=== PATIENT | male | born 1955 | race Caucasian/White ===

== ENCOUNTER 2018-02-04 03:47 | Emergency (ER) | payer SELFPAY ==
[2018-02-04] MEDS ORDERED: ASPIRIN 81 MG TABLET, CHEWABLE PO ONE (03:54)
[2018-02-04 04:22] LABS: ABSOLUTE EOSINOPHILS # (AUTO) 0.3 10^3/uL (0.0-0.6); ABSOLUTE LYMPHOCYTES (AUTO) 1.8 10^3/uL (0.5-4.7); ABSOLUTE MONOCYTES (AUTO) 0.5 10^3/uL (0.1-1.4); ABSOLUTE NEUT (AUTO) 2.6 10^3/uL (1.7-8.2); BASOPHILS % (AUTO) 0.2 % (0-2); EOSINOPHILS % (AUTO) 6.3 % (0-6); HEMOGLOBIN 12.6 g/dL (12.0-15.5); MEAN CORPUSCULAR HEMOGLOBIN 33.4 pg (27.0-33.4); MEAN CORPUSCULAR HGB CONC 34.1 g/dL (32.0-36.0); MEAN CORPUSCULAR VOLUME 98 fl (80-97); MONOCYTES % (AUTO) 9.4 % (3-13); PLATELET COUNT 314 10^3/uL (150-450); RED BLOOD COUNT 3.78 10^6/uL (3.72-5.28); RED CELL DISTRIBUTION WIDTH 13.8 % (11.5-14.0); SEGMENTED NEUTROPHILS % (AUTO) 50.1 % (42-78); TOTAL CELLS COUNTED % (AUTO) 100 %; WHITE BLOOD COUNT 5.3 10^3/uL (4.0-10.5)
[2018-02-04] MEDS ORDERED: MORPHINE SULFATE 10 MG/ML INJ IV ONE (04:26)
[2018-02-04] MEDS ORDERED: ONDANSETRON HCL INJ/PF 4 MG/2 ML SDV IV ONE (04:26)
--- NOTE | 2018-02-04 04:26 | RADIOLOGY REPORT (SQ) ---
EXAM DESCRIPTION: XR CHEST 1 VIEW COMPLETED DATE/TME: 02/04/2018 03:54 CLINICAL HISTORY: 62 years, Female, cp COMPARISON: None. NUMBER OF VIEWS: 1 TECHNIQUE: Frontal view the chest LIMITATIONS: None. FINDINGS: The heart size is normal. Osteopenia. COPD. Multiple left rib fractures. No pneumothorax. Punctate hyperdensity in the right axilla. Lungs are clear IMPRESSION: COPD. No acute cardiopulmonary process 2010 [email or web address]- All Rights Reserved
--- NOTE | 2018-02-04 04:28 | ER Document Report ---
ED General <KIRAN SHAY - Last Filed: 02/04/18 10:13> - General Mode of Arrival: Medic Information source: Patient, Emergency Med Personnel, [facility] Records - HPI Onset: Just prior to arrival Onset/Duration: Sudden, Intermittent Quality of pain: Sharp Associated symptoms: Chest pain. denies: Diarrhea, Fever, Headache, Nausea, Vomiting, Shortness of breath Exacerbated by: Denies Relieved by: Denies Similar symptoms previously: No Recently seen / treated by doctor: No <TOBI DELGADO - Last Filed: 02/04/18 18:20> - General Stated Complaint: CHEST PAIN Time Seen by Provider: 02/04/18 03:56 Notes: 62-year-old male with remote history of CVA presents via EMS with complaint of chest pain that started 1 hour prior to arrival while riding his bike. Patient states that he rode his bike approximately 35 miles today. He states that 1 hour ago he started to experience sharp epigastric pain that does not radiate. He describes it as intermittent and not associated with diaphoresis, nausea or lightheadedness. He denies any previous history of NH. He does have a 30-pack- year smoking history patient admits to drinking a few beers daily. Patient denies any recent illness. (TOBI DELGADO) - Related Data Allergies/Adverse Reactions: No Known Allergies Allergy (Unverified 02/04/18 04:04) Past Medical History - General Information source: Patient, Emergency Med Personnel - Social History Smoking Status: Current Every Day Smoker Cigarette use (# per day): Yes - 10 Smoking Education Provided: Yes - Smoking cessation counseling was provided for 4 minutes at the bedside Frequency of alcohol use: Heavy Drug Abuse: None Lives with: Homeless Family History: Reviewed & Not Pertinent Patient has suicidal ideation: No Patient has homicidal ideation: No Neurological Medical History: Reports: Hx Cerebrovascular Accident <TOBI DELGADO - Last Filed: 02/04/18 18:20> Review of Systems <KIRAN SHAY - Last Filed: 02/04/18 10:13> <TOBI DELGADO - Last Filed: 02/04/18 18:20> - Review of Systems Notes: REVIEW OF SYSTEMS: CONSTITUTIONAL : Denies fever, chills, or sweats. Denies recent illness. Denies weight loss, recent hospitalizations. EENT: Denies visual changes, eye pain. Denies sore throat, oral lesions, difficulty swallowing. CARDIOVASCULAR: Denies palpitations. Denies lower extremity edema. RESPIRATORY: Denies cough. Denies shortness of breath, wheezing. GASTROINTESTINAL: Denies abdominal pain or distention. Denies nausea, vomiting , or diarrhea. Denies blood in vomitus, stools, or per rectum. Denies black, tarry stools. Denies constipation. GENITOURINARY: Denies difficulty urinating, painful urination, frequency, blood in urine, testicular pain or penile discharge. MUSCULOSKELETAL: Denies back or neck pain or stiffness. Denies joint pain or swelling. SKIN: Denies rash, lesions or sores. HEMATOLOGIC : Denies easy bruising or bleeding. LYMPHATIC: Denies swollen glands. NEUROLOGICAL: Denies confusion or altered mental status. Denies loss of consciousness. Denies dizziness or lightheadedness. Denies headache. Denies weakness or paralysis. Denies problems difficulty with ambulation, slurred speech. Denies sensory loss, numbness, or tingling. Denies seizures. PSYCHIATRIC: Denies anxiety or stress. Denies depression, suicidal ideation, or (TOBI DELGADO) Physical Exam - Vital signs Interpretation: No: Hypotensive, Tachycardic, Febrile <TOBI DELGADO - Last Filed: 02/04/18 18:20> - Vital signs Vitals: Pulse Ox 98 02/04/18 03:52 Course - Laboratory Result Diagrams: 02/04/18 03:58 02/04/18 03:58 <KIRAN SHAY - Last Filed: 02/04/18 10:13> - Laboratory Result Diagrams: 02/04/18 03:58 02/04/18 03:58 - Diagnostic Test Radiology reviewed: Image reviewed, Reports reviewed - EKG Interpretation by Ct EKG shows normal: Sinus rhythm Rate: Normal Rhythm: NSR When compared to previous EKG there are: Previous EKG unavailable <TOBI DELGADO - Last Filed: 02/04/18 18:20> - Re-evaluation Re-evalutation: Chest X-Ray 02/04/18 03:54 IMPRESSION: COPD. No acute cardiopulmonary process 2010 [employer]- All Rights Reserved Laboratory 02/04/18 02/04/18 02/04/18 03:58 03:58 03:58 WBC 5.3 RBC 3.78 Hgb 12.6 Hct 37.0 MCV 98 H MCH 33.4 MCHC 34.1 RDW 13.8 Plt Count 314 Seg Neutrophils % 50.1 Lymphocytes % 34.0 Monocytes % 9.4 Eosinophils % 6.3 H Basophils % 0.2 Absolute Neutrophils 2.6 Absolute Lymphocytes 1.8 Absolute Monocytes 0.5 Absolute Eosinophils 0.3 Absolute Basophils 0.0 Sodium 146.8 H Potassium 4.3 Chloride 109 H Carbon Dioxide 29 Anion Gap 9 BUN 6 L Creatinine 0.62 Est GFR ( Amer) > 60 Est GFR (Non-Af Amer) > 60 Glucose 93 Calcium 9.2 Total Bilirubin 0.3 Direct Bilirubin 0.2 Neonat Total Bilirubin Not Reportable Neonat Direct Bilirubin Not Reportable Neonat Indirect Bili Not Reportable AST 41 H ALT 23 Alkaline Phosphatase 103 Creatine Kinase 126 CK-MB (CK-2) 2.19 Troponin I < 0.012 Total Protein 7.2 Albumin 3.7 Lipase 02/04/18 03:58 WBC RBC Hgb Hct MCV MCH MCHC RDW Plt Count Seg Neutrophils % Lymphocytes % Monocytes % Eosinophils % Basophils % Absolute Neutrophils Absolute Lymphocytes Absolute Monocytes Absolute Eosinophils Absolute Basophils Sodium Potassium Chloride Carbon Dioxide Anion Gap BUN Creatinine Est GFR ( Amer) Est GFR (Non-Af Amer) Glucose Calcium Total Bilirubin Direct Bilirubin Neonat Total Bilirubin Neonat Direct Bilirubin Neonat Indirect Bili AST ALT Alkaline Phosphatase Creatine Kinase CK-MB (CK-2) Troponin I Total Protein Albumin Lipase 54.1 02/04/18 04:25 62-year-old male with a 52-[id number]-[id number] smoking history presents via EMS with complaint of chest pain that started 1 hour prior to arrival after riding his bike over 35 miles today. Upon arrival EKG was obtained and showed the patient to be in normal sinus. QRS 92, QTc 431. No evidence of ST elevation. Vitals were reviewed upon arrival and patient is normotensive, not hypoxic or tachycardic. Patient does not appear toxic or dehydrated. He is in no acute distress. Patient did receive nitro and aspirin prior to arrival which he reports did helped with the pain. Patient still complaining of epigastric pain. He does admit to drinking daily. CBC, CMP, Lipase and tropnin x2 wnl. Patient re-evaluated and is resting comfortably and reports resolutuion of pain. Patient was monitored in the department in the department for over five hours without recurrence of pain. All results discussed with the patient. I have low suspicion for ACS after riding 35 miles just prior to arrival patient essential performed his own stress test. His pain was more epigastric and with his daily drinking it could be related to gastritis. Low suspicion of pancreatitis, cholecystitis, pneumothorax, aortic dissection. 02/04/18 05:22 02/04/18 06:51 HEART Score: History-1 ECG-0 Age-1 Risk Factors-1 Troponin-0 Total: 3 If HEART score is = 3 AND both tronponin measurments are normal, the 30 day risk of a major adverse cardiac event (all-cause mortality, myocardia infarction or need for coronary revscularization) is < 1% (Sensitivity 100%, NPV 100%). Chest pain in a patient without evidence of cardiac or other serious etiology on workup today. I discussed with patient that, based on their age, risk factors and emergency department testing today, the likelihood that their symptoms are related to a heart attack is very low (estimated risk of heart attack or over the next 30 days of less than 1%). The patient demonstrates decision making capacity and has verbalized an understanding of these risks to me. Based on this, the patient has chosen to follow-up as an outpatient. Usual chest pain return precautions reviewed. The patient states understanding and agreement with this plan. 02/04/18 18:12 02/04/18 18:13 (TOBI DELGADO) - Vital Signs Vital signs: Temp Pulse Resp BP Pulse Ox 10 L 113/65 97 02/04/18 10:01 02/04/18 10:01 02/04/18 10:01 - Laboratory Laboratory results interpreted by me: 02/04/18 02/04/18 03:58 03:58 MCV 98 H Eosinophils % 6.3 H Sodium 146.8 H Chloride 109 H BUN 6 L AST 41 H Discharge <KIRAN SHAY - Last Filed: 02/04/18 10:13> <TOBI DELGADO - Last Filed: 02/04/18 18:20> - Discharge Clinical Impression: Epigastric pain, Tobacco use COPD (chronic obstructive pulmonary disease) Qualifiers: COPD type: unspecified COPD Qualified Code(s): J44.9 - Chronic obstructive pulmonary disease, unspecified Chest pain Qualifiers: Chest pain type: unspecified Qualified Code(s): R07.9 - Chest pain, unspecified Condition: Good Disposition: HOME, SELF-CARE Instructions: Abdominal Pain ([facility]), Antinausea Medication ([facility]), Chest Pain of Unclear Cause ([facility]), Evaluation of Upper Abdominal Pain ([facility]) Additional Instructions: You were seen today for chest pain. The exact cause of your pain is unclear. However, based on your cardiac enzyme testing, chest x-ray, and EKG it does not appear that it is from an immediately life-threatening cause at this time. Although your testing here is normal is critical that you follow-up with your primary care physician for continued evaluation of this chest pain and possible stress testing. I recommended you see your physician within the next 24-48 hours to be evaluated for consideration of a stress test. Please return to emergency department immediately if you have worsening of your chest pain, shortness of breath, vomiting, become unable to exert yourself due to pain or difficulty breathing, you pass out, or have any pain that radiates into your arms, jaw, or back. Please also return if you have any additional symptoms that are concerning to you. Forms: Smoking Cessation Education
[2018-02-04 04:33] LABS: ALANINE AMINOTRANSFERASE 23 U/L (9-52); ALBUMIN 3.7 g/dL (3.5-5.0); ALKALINE PHOSPHATASE 103 U/L (38-126); ANION GAP 9 (5-19); ASPARTATE AMINO TRANSFERASE 41 U/L (14-36); BILIRUBIN,DIRECT 0.2 mg/dL (0.0-0.4); BILIRUBIN,TOTAL 0.3 mg/dL (0.2-1.3); BLOOD UREA NITROGEN 6 mg/dL (7-20); CALCIUM 9.2 mg/dL (8.4-10.2); CARBON DIOXIDE 29 mmol/L (22-30); CHLORIDE 109 mmol/L (98-107); CREATINE KINASE 126 U/L (30-135); GLUCOSE 93 mg/dL (75-110); POTASSIUM 4.3 mmol/L (3.6-5.0); SODIUM 146.8 mmol/L (137-145); TOTAL PROTEIN 7.2 g/dL (6.3-8.2)
[2018-02-04 04:43] LABS: CREATINE KINASE MB 2.19 ng/mL (<4.55)
[2018-02-04 04:45] LABS: TROPONIN I < 0.012 ng/mL
[2018-02-04] MEDS ORDERED: IPRATROPIUM/ALBUTEROL 0.5-2.5 MG/3 ML AMPUL NEB ONE (05:19)
[2018-02-04 05:32] LABS: LIPASE 54.1 U/L (23-300)
[2018-02-04] MEDS ORDERED: NORMAL SALINE 1000 ML 1,000 ML IV ONE (05:48)
--- NOTE | 2018-02-04 09:39 | EKG REPORT ---
SEVERITY:- NORMAL ECG - SINUS RHYTHM : Confirmed by: Rachel Pratt MD 04-Feb-2018 09:38:47
[2018-02-04 10:16] VITALS: BP 113/65
== END 2018-02-04 10:21 | disposition home or self-care (01) ==
LOC: EDSEX 03:47 → ER 03:47
DX: R07.9 Chest pain, unspecified (principal); R10.13 Epigastric pain; J44.9 Chronic obstructive pulmonary disease, unspecified; F17.210 Nicotine dependence, cigarettes, uncomplicated; Z86.73 Personal history of transient ischemic attack (TIA), and cerebral infarction without residual deficits
CPT/HCPCS: 93005; 99406; 94640; 99285; 96361; 96374; 96375; 36415; 82553; 82550; 83690; 85025; 80053; 84484; 71045; 93010; J2270; J2405; J7030; J7620

== ENCOUNTER 2018-02-13 17:02 | Emergency (ER) | payer SELFPAY ==
--- NOTE | 2018-02-13 17:30 | ER Document Report ---
ED Medical Screen (RME) - General Chief Complaint: Pain Stated Complaint: LEFT SIDE PAIN Time Seen by Provider: 02/13/18 17:23 Notes: Patient is a 62-year-old male that presents to the emergency department for chief complaint of left flank pain and left chest pain. Patient states the pain started about 1 hour ago but slightly improved from earlier.. ROS: Other than noted above, the 12 point review of systems was reviewed with the patient and were negative, all pertinent findings are included in the HPI. PHYSICAL EXAMINATION: Vital signs reviewed. GENERAL: Well-appearing, well-nourished and in no acute distress. HEAD: Atraumatic, normocephalic. EYES: Pupils equal round extraocular movements intact, conjunctiva are normal. ENT: Nares patent NECK: Normal range of motion CV: Heart regular rate and rhythm LUNGS: No respiratory distress, left posterior lateral rib tenderness Musculoskeletal: Normal range of motion NEUROLOGICAL: Normal speech PSYCH: Normal mood, normal affect. MDM: Patient seen and examined for rapid initial assessment. Vital signs reviewed. A comprehensive ED assessment and evaluation of the patient, analysis of test results and completion of the medical decision making process will be conducted by additional ED providers. *Note is created using voice recognition software and may contain spelling, syntax or grammatical errors. TRAVEL OUTSIDE OF THE [place] IN LAST 30 DAYS: No - Related Data Allergies/Adverse Reactions: No Known Allergies Allergy (Unverified 02/04/18 04:04) Past Medical History - Social History Frequency of alcohol use: Social Drug Abuse: None Neurological Medical History: Reports: Hx Cerebrovascular Accident Renal/ Medical History: Denies: Hx Peritoneal Dialysis Physical Exam - Vital signs Vitals: Temp Pulse Resp BP Pulse Ox 98.1 F 82 18 118/62 100 02/13/18 17:09 02/13/18 17:09 02/13/18 17:09 02/13/18 17:09 02/13/18 17:09 Course - Vital Signs Vital signs: Temp Pulse Resp BP Pulse Ox 98.1 F 82 18 118/62 100 02/13/18 17:09 02/13/18 17:09 02/13/18 17:09 02/13/18 17:09 02/13/18 17:09
--- NOTE | 2018-02-13 18:14 | RADIOLOGY REPORT (SQ) ---
EXAM DESCRIPTION: RIBS LEFT W/PA CHEST COMPLETED DATE/TIME: 02/13/2018 5:52 pm REASON FOR STUDY: chest pain, l rib pain COMPARISON: None. TECHNIQUE: Frontal view of the chest and additional views of the left ribs acquired. NUMBER OF VIEWS: Three views LIMITATIONS: None. FINDINGS: FRONTAL CXR: No pneumothorax. No pleural effusion. No atelectasis or infiltrates. RIBS: There is deformity of the left 7th and 8th ribs. This does not appear to be acute. OTHER: No other significant finding. IMPRESSION: There appear to be old fractures on the left as described. No acute abnormality is seen . COMMENT: SITE OF TRAUMA/COMPLAINT MARKED/STAMP COMPLETED: No TECHNICAL DOCUMENTATION: JOB ID: [id number] [employer]- All Rights Reserved Reading location - IP/workstation name: [email or web address]
[2018-02-13 18:17] LABS: ABSOLUTE EOSINOPHILS # (AUTO) 0.2 10^3/uL (0.0-0.6); ABSOLUTE LYMPHOCYTES (AUTO) 1.8 10^3/uL (0.5-4.7); ABSOLUTE MONOCYTES (AUTO) 0.5 10^3/uL (0.1-1.4); ABSOLUTE NEUT (AUTO) 3.4 10^3/uL (1.7-8.2); APPEARANCE,URINE CLEAR; BASOPHILS % (AUTO) 0.8 % (0-2); BILIRUBIN,URINE NEGATIVE (NEGATIVE); COLOR,URINE COLORLESS; EOSINOPHILS % (AUTO) 2.8 % (0-6); GLUCOSE, URINE NEGATIVE (NEGATIVE); HEMATOCRIT 36.8 % (37.9-51.0); HEMOGLOBIN 12.3 g/dL (13.5-17.0); KETONES,URINE NEGATIVE (NEGATIVE); LEUKOCYTE ESTERASE,URINE NEGATIVE (NEGATIVE); LYMPHOCYTES % (AUTO) 30.7 % (13-45); MEAN CORPUSCULAR HEMOGLOBIN 33.2 pg (27.0-33.4); MEAN CORPUSCULAR HGB CONC 33.4 g/dL (32.0-36.0); MEAN CORPUSCULAR VOLUME 100 fl (80-97); NITRITE,URINE NEGATIVE (NEGATIVE); PLATELET COUNT 258 10^3/uL (150-450); PROTEIN,URINE NEGATIVE (NEGATIVE); RED BLOOD COUNT 3.69 10^6/uL (4.35-5.55); RED CELL DISTRIBUTION WIDTH 13.7 % (11.5-14.0); SEGMENTED NEUTROPHILS % (AUTO) 57.7 % (42-78); TOTAL CELLS COUNTED % (AUTO) 100 %; URINE SPECIFIC GRAVITY 1.002; UROBILINOGEN,URINE NEGATIVE mg/dL (<2.0); WHITE BLOOD COUNT 5.9 10^3/uL (4.0-10.5)
[2018-02-13 18:35] LABS: ALANINE AMINOTRANSFERASE 18 U/L (21-72); ALBUMIN 4.1 g/dL (3.5-5.0); ALKALINE PHOSPHATASE 96 U/L (38-126); ANION GAP 11 (5-19); ASPARTATE AMINO TRANSFERASE 31 U/L (17-59); BILIRUBIN,DIRECT 0.2 mg/dL (0.0-0.4); BILIRUBIN,TOTAL 0.4 mg/dL (0.2-1.3); BLOOD UREA NITROGEN 10 mg/dL (7-20); CALCIUM 9.2 mg/dL (8.4-10.2); CARBON DIOXIDE 28 mmol/L (22-30); CHLORIDE 106 mmol/L (98-107); CREATINE KINASE 70 U/L (55-170); GLUCOSE 84 mg/dL (75-110); POTASSIUM 4.4 mmol/L (3.6-5.0); SODIUM 145.3 mmol/L (137-145); TOTAL PROTEIN 7.4 g/dL (6.3-8.2)
[2018-02-13] MEDS ORDERED: KETOROLAC TROMETHAMINE INJ/PF 30 MG/1 ML SDV IV ONE (20:37)
--- NOTE | 2018-02-13 20:40 | ER Document Report ---
ED General - General Chief Complaint: Pain Stated Complaint: LEFT SIDE PAIN Time Seen by Provider: 02/13/18 17:23 Mode of Arrival: Medic Information source: Patient, Emergency Med Personnel, [facility] Records Notes: 62-year-old male with remote history of CVA presents via EMS with complaint of left sided chest wall pain that started 1 hour prior to arrival while riding his bike. Patient states that he rode his bike approximately 15 miles today. Patient states that in the middle of his bike ride he began to feel dizzy and called EMS. Patient's pain is located along the left flank and left upper back. He denies any falls, recent injury. He denies any previous history of [place]. He does have a 40-nztr-roal smoking history patient admits to drinking a few beers daily. Patient denies any recent illness. Patient was evaluated in the emergency did a 10 days ago for chest pain after riding his bike 35 miles. At that time he had a negative cardiac workup and was discharged home. TRAVEL OUTSIDE OF THE [place] IN LAST 30 DAYS: No - HPI Onset: Just prior to arrival Onset/Duration: Sudden Quality of pain: Achy Severity: Mild Associated symptoms: Other - Dizziness. denies: Chest pain, Fever, Headache, Nausea, Vomiting, Shortness of breath Exacerbated by: Denies Relieved by: Denies Similar symptoms previously: Yes Recently seen / treated by doctor: Yes - Related Data Allergies/Adverse Reactions: No Known Allergies Allergy (Unverified 02/04/18 04:04) Past Medical History - General Information source: Patient - Social History Smoking Status: Current Every Day Smoker Cigarette use (# per day): Yes - 20 Smoking Education Provided: Yes - Smoking cessation counseling was provided for 4 minutes at the bedside Frequency of alcohol use: Social Drug Abuse: None Lives with: Homeless Family History: Reviewed & Not Pertinent Patient has suicidal ideation: No Patient has homicidal ideation: No Neurological Medical History: Reports: Hx Cerebrovascular Accident Renal/ Medical History: Denies: Hx Peritoneal Dialysis Review of Systems - Review of Systems Notes: REVIEW OF SYSTEMS: CONSTITUTIONAL : Denies fever, chills, or sweats. Denies recent illness. Denies weight loss, recent hospitalizations. EENT: Denies visual changes, eye pain. Denies sore throat, oral lesions, difficulty swallowing. CARDIOVASCULAR: Denies chest pain. Denies palpitations. Denies lower extremity edema. RESPIRATORY: Denies cough. Denies shortness of breath, wheezing. GASTROINTESTINAL: Denies abdominal pain or distention. Denies nausea, vomiting , or diarrhea. Denies blood in vomitus, stools, or per rectum. Denies black, tarry stools. Denies constipation. GENITOURINARY: Denies difficulty urinating, painful urination, frequency, blood in urine, testicular pain or penile discharge. MUSCULOSKELETAL: Denies neck pain or stiffness. Denies joint pain or swelling. SKIN: Denies rash, lesions or sores. HEMATOLOGIC : Denies easy bruising or bleeding. LYMPHATIC: Denies swollen glands. NEUROLOGICAL: Denies confusion or altered mental status. Denies loss of consciousness. Denies headache. Denies weakness or paralysis. Denies problems difficulty with ambulation, slurred speech. Denies sensory loss, numbness, or tingling. Denies seizures. PSYCHIATRIC: Denies anxiety or stress. Denies depression, suicidal ideation, or Physical Exam - Vital signs Vitals: Temp Pulse Resp BP Pulse Ox 98.1 F 82 18 118/62 100 02/13/18 17:09 02/13/18 17:09 02/13/18 17:09 02/13/18 17:09 02/13/18 17:09 - Notes Notes: PHYSICAL EXAMINATION: GENERAL: Well-appearing, well-nourished and in no acute distress. HEAD: Atraumatic, normocephalic. EYES: Pupils equal round and reactive to light, extraocular movements intact, sclera anicteric, conjunctiva are normal. ENT: Nares patent, oropharynx clear without exudates. Moist mucous membranes. NECK: Normal range of motion, supple without lymphadenopathy LUNGS: Breath sounds clear to auscultation bilaterally and equal. No wheezes rales or rhonchi. Left chest wall pain reproducible. No ecchymosis no crepitus. HEART: Regular rate and rhythm without murmurs. ABDOMEN: Soft, nontender, nondistended abdomen. No guarding, no rebound. No masses appreciated. Musculoskeletal: Normal range of motion, no pitting or edema. No cyanosis. NEUROLOGICAL: Cranial nerves grossly intact. Normal speech, normal gait. Normal sensory, motor exams PSYCH: Normal mood, normal affect. SKIN: Warm, Dry, normal turgor, no rashes or lesions noted. Course - Re-evaluation Re-evalutation: 02/13/18 21:35 Laboratory 02/13/18 02/13/18 02/13/18 18:00 18:00 18:00 WBC 5.9 RBC 3.69 L Hgb 12.3 L Hct 36.8 L MCV 100 H MCH 33.2 MCHC 33.4 RDW 13.7 Plt Count 258 Seg Neutrophils % 57.7 Lymphocytes % 30.7 Monocytes % 8.0 Eosinophils % 2.8 Basophils % 0.8 Absolute Neutrophils 3.4 Absolute Lymphocytes 1.8 Absolute Monocytes 0.5 Absolute Eosinophils 0.2 Absolute Basophils 0.0 Sodium 145.3 H Potassium 4.4 Chloride 106 Carbon Dioxide 28 Anion Gap 11 BUN 10 Creatinine 0.70 Est GFR ( Amer) > 60 Est GFR (Non-Af Amer) > 60 Glucose 84 Calcium 9.2 Total Bilirubin 0.4 Direct Bilirubin 0.2 Neonat Total Bilirubin Not Reportable Neonat Direct Bilirubin Not Reportable Neonat Indirect Bili Not Reportable AST 31 ALT 18 L Alkaline Phosphatase 96 Creatine Kinase 70 Troponin I < 0.012 Total Protein 7.4 Albumin 4.1 Urine Color Urine Appearance Urine pH Ur Specific [place] Urine Protein Urine Glucose (UA) Urine Ketones Urine Blood Urine Nitrite Urine Bilirubin Urine Urobilinogen Ur Leukocyte Esterase Urine WBC (Auto) Urine RBC (Auto) Urine Mucus (Auto) Urine Ascorbic Acid 02/13/18 18:00 WBC RBC Hgb Hct MCV MCH MCHC RDW Plt Count Seg Neutrophils % Lymphocytes % Monocytes % Eosinophils % Basophils % Absolute Neutrophils Absolute Lymphocytes Absolute Monocytes Absolute Eosinophils Absolute Basophils Sodium Potassium Chloride Carbon Dioxide Anion Gap BUN Creatinine Est GFR ( Amer) Est GFR (Non-Af Amer) Glucose Calcium Total Bilirubin Direct Bilirubin Neonat Total Bilirubin Neonat Direct Bilirubin Neonat Indirect Bili AST ALT Alkaline Phosphatase Creatine Kinase Troponin I Total Protein Albumin Urine Color COLORLESS Urine Appearance CLEAR Urine pH 5.0 Ur Specific [place] 1.002 Urine Protein NEGATIVE Urine Glucose (UA) NEGATIVE Urine Ketones NEGATIVE Urine Blood NEGATIVE Urine Nitrite NEGATIVE Urine Bilirubin NEGATIVE Urine Urobilinogen NEGATIVE Ur Leukocyte Esterase NEGATIVE Urine WBC (Auto) 0 Urine RBC (Auto) 0 Urine Mucus (Auto) RARE Urine Ascorbic Acid NEGATIVE Ribs w/Chest X-Ray 02/13/18 17:28 IMPRESSION: There appear to be old fractures on the left as described. No acute abnormality is seen. 62-year-old male presents via EMS with complaint of left-sided chest pain, flank pain and dizziness that occurred while riding his bicycle. Patient states that he rode his bicycle approximately 20 miles today and then became lightheaded which prompted him to call EMS. Patient denies any recent fall, injury. Patient had a recent visit to the emergency department where cardiac workup was obtained and negative. Upon arrival patient was placed on cardiac specialist and EKG was obtained which showed the patient to be in normal sinus rhythm at a rate 74. Chest x-ray was obtained and showed old left-sided fractures which when questioned the patient knew nothing about. CBC, CMP, are within normal limits. Urinalysis within normal limits. On reevaluation patient states that he is feeling better. He did receive IV fluids and Toradol for his pain. Patient was evaluated and treated as appropriate for the patient' s presenting symptoms and complaint, with consideration of any critical or life threatening conditions that may be associated with their obtained history and exam as noted above. All results were discussed with patient. Patient provided the opportunity to ask questions, and express concerns. Patient was educated on treatments based on their presumed diagnosis as noted above. At this time we will discharge the patient with return precautions and follow-up recommendations. Verbal discharge instructions given a the bedside. Medication warnings reviewed. Patient is in agreement with this plan and has verbalized understanding of return precautions. After careful consideration I feel that that patient can be safely discharged from the emergency department, they were advised to followup with a primary care physician in 2-3 days. Dictation on this chart was performed using voice recognition software and may result in unintended grammatical, spelling, syntax or errors. HEART Score: History-1 ECG-0 Age-1 Risk Factors-1 Troponin-0 Total: 3 If HEART score is = 3 AND both troponin measurements are normal, the 30 day risk of a major adverse cardiac event (all-cause mortality, myocardial infarction or need for coronary revascularization) is < 1% (Sensitivity 100%, NPV 100%). Chest pain in a patient without evidence of cardiac or other serious etiology on workup today. I discussed with patient that, based on their age, risk factors and emergency department testing today, the likelihood that their symptoms are related to a heart attack is very low (estimated risk of heart attack or over the next 30 days of less than 1%). The patient demonstrates decision making capacity and has verbalized an understanding of these risks to me. Based on this, the patient has chosen to follow-up as an outpatient. Usual chest pain return precautions reviewed. The patient states understanding and agreement with this plan. 02/13/18 21:37 - Vital Signs Vital signs: Temp Pulse Resp BP Pulse Ox 98.6 F 73 18 131/72 H 100 02/13/18 20:54 02/13/18 20:54 02/13/18 20:54 02/13/18 20:54 02/13/18 20:54 - Laboratory Result Diagrams: 02/13/18 18:00 02/13/18 18:00 Laboratory results interpreted by me: 02/13/18 02/13/18 18:00 18:00 RBC 3.69 L Hgb 12.3 L Hct 36.8 L MCV 100 H Sodium 145.3 H ALT 18 L - Diagnostic Test Radiology reviewed: Image reviewed, Reports reviewed - EKG Interpretation by Me EKG shows normal: Sinus rhythm Rate: Normal Rhythm: NSR When compared to previous EKG there are: No significant change Discharge - Discharge Clinical Impression: Chest wall pain, Dizziness, Elevated blood pressure reading Ribs, multiple fractures Qualifiers: Encounter type: sequela Fracture type: closed Laterality: left Qualified Code(s ): S22.42XS - Multiple fractures of ribs, left side, sequela Condition: Good Disposition: HOME, SELF-CARE Instructions: Chest Wall Pain ([facility]), Dizziness ([facility]) Additional Instructions: You were seen today for chest pain. The exact cause of your pain is unclear. However, based on your cardiac enzyme testing, chest x-ray, and EKG it does not appear that it is from an immediately life-threatening cause at this time. Although your testing here is normal is critical that you follow-up with your primary care physician for continued evaluation of this chest pain and possible stress testing. I recommended you see your physician within the next 24-48 hours to be evaluated for consideration of a stress test. Please return to emergency department immediately if you have worsening of your chest pain, shortness of breath, vomiting, become unable to exert yourself due to pain or difficulty breathing, you pass out, or have any pain that radiates into your arms, jaw, or back. Please also return if you have any additional symptoms that are concerning to you. Forms: Elevated Blood Pressure [facility] [NO LOCAL MD] - Follow up in 3-5 days
[2018-02-13 20:54] VITALS: BP 131/72
--- NOTE | 2018-02-14 07:21 | EKG REPORT ---
SEVERITY:- NORMAL ECG - SINUS RHYTHM : Confirmed by: Ken Hernandez 14-Feb-2018 07:20:13
== END 2018-02-13 20:56 | disposition home or self-care (01) ==
LOC: ER 17:02
DX: R07.89 Other chest pain (principal); S22.42XS Multiple fractures of ribs, left side, sequela; X58.XXXS Exposure to other specified factors, sequela; R03.0 Elevated blood-pressure reading, without diagnosis of hypertension; R42 Dizziness and giddiness; R10.9 Unspecified abdominal pain; M54.89 Other dorsalgia; F17.210 Nicotine dependence, cigarettes, uncomplicated; Z71.6 Tobacco abuse counseling; Z86.73 Personal history of transient ischemic attack (TIA), and cerebral infarction without residual deficits; Z59.0 Homelessness
CPT/HCPCS: 93005; 99406; 99284; 96374; 36415; 82550; 85025; 80053; 81001; 84484; 71101; 93010; J1885

== ENCOUNTER 2018-06-02 15:56 | Emergency (ER) | payer SELFPAY ==
--- NOTE | 2018-06-02 16:34 | EKG REPORT ---
SEVERITY:- BORDERLINE ECG - SINUS RHYTHM TALL R WAVE IN V2, CONSIDER RVH OR PMI : Confirmed by: Ken Hernandez 02-Jun-2018 16:33:19
[2018-06-02] MEDS ORDERED: ASPIRIN 81 MG TABLET, CHEWABLE PO ONE (16:54)
--- NOTE | 2018-06-02 16:59 | ER Document Report ---
ED General - General TRAVEL OUTSIDE OF THE [place] IN LAST 30 DAYS: No <NATALIO ESPAÑA - Last Filed: 06/02/18 18:53> <[email or web address] - Last Filed: 06/03/18 00:45> - General Chief Complaint: Chest Pain Stated Complaint: CHEST PAIN Time Seen by Provider: 06/02/18 16:54 Primary Care Provider: [facility] [Provider Group] - Follow up as needed Notes: 62 male with hypertension untreated was on a long walk today and started having left-sided chest pain that radiated to his jaw at approximately 1500. He was brought in by EMS. He complains of nausea, diaphoresis, shortness of breath. Patient is a daily smoker Patient denies any fevers, chills, vomiting, diarrhea, extremity weakness or paresthesias, headache. Patient has no other complaints. Of note, patient is homeless. (NATALIO ESPAÑA) - Related Data Allergies/Adverse Reactions: No Known Allergies Allergy (Unverified 02/04/18 04:04) Past Medical History - Social History Smoking Status: Current Some Day Smoker Chew tobacco use (# tins/day): No Frequency of alcohol use: Occasional Drug Abuse: None Family History: Reviewed & Not Pertinent Patient has suicidal ideation: No Patient has homicidal ideation: No Neurological Medical History: Reports: Hx Cerebrovascular Accident Renal/ Medical History: Denies: Hx Peritoneal Dialysis <NATALIO ESPAÑA - Last Filed: 06/02/18 18:53> Review of Systems - Review of Systems Constitutional: See HPI EENT: See HPI Cardiovascular: See HPI Respiratory: See HPI Gastrointestinal: See HPI Genitourinary: See HPI Male Genitourinary: No symptoms reported Musculoskeletal: No symptoms reported Skin: No symptoms reported Hematologic/Lymphatic: No symptoms reported Neurological/Psychological: No symptoms reported <NATALIO ESPAÑA - Last Filed: 06/02/18 18:53> Physical Exam <NATALIO ESPAÑA - Last Filed: 06/02/18 18:53> - Vital signs Vitals: Resp Pulse Ox 19 100 06/02/18 16:05 06/02/18 16:05 - Notes Notes: PHYSICAL EXAMINATION: Reviewed vital signs and charting by RN GENERAL: Alert, interacts well. No acute distress. HEAD: Normocephalic, atraumatic. EYES: Pupils equal, round, and reactive to light. Extraocular movements intact. ENT: Oral mucosa moist, tongue midline. NECK: Full range of motion. Supple. Trachea midline. LUNGS: Clear to auscultation bilaterally, no wheezes, rales, or rhonchi. No respiratory distress. HEART: Regular rate and rhythm. No murmur ABDOMEN: soft, non-tender. Non-distended. Bowel sounds present in all 4 quadrants. no McBurney's point tenderness, no Billingsley sign. EXTREMITIES: Moves all 4 extremities spontaneously. No edema, No cyanosis. NEUROLOGICAL: Normal speech. PSYCH: Normal affect, normal mood. SKIN: Warm, dry, normal turgor. No rashes or lesions noted. (NATALIO ESPAÑA) Course - Laboratory Result Diagrams: 06/02/18 16:00 06/02/18 16:00 <NATALIO ESPAÑA - Last Filed: 06/02/18 18:53> - Laboratory Result Diagrams: 06/02/18 16:00 06/02/18 16:00 <BEATRIZ GALAVIZ - Last Filed: 06/03/18 00:45> - Re-evaluation Re-evalutation: 06/02/18 16:58 Chest pain care set initiated. Patient is homeless so I will put in a consult to patient case coordinator. 06/02/18 18:53 Initial troponin negative. Heart score 3. Lab work all unremarkable. Patient states he is still having very slight, lingering chest pain. (NATALIO STEARNS) 06/03/18 Patient has now had 3 negative troponins. On my evaluation he denies any symptoms other than feeling hungry. He was sleeping and was easily aroused. Unremarkable vital signs on the monitor. Heart score of 3 is mentioned earlier, patient will be discharged with follow-up recommendations and return precautions. I did discuss with patient his workup, his plans, he states he is headed to [place] to find work. He states understanding and agreement w [facility] plan and return precautions. (BEATRIZ GALAVIZ) - Vital Signs Vital signs: Temp Pulse Resp BP Pulse Ox 97.9 F 19 137/59 H 98 06/02/18 23:01 06/02/18 23:01 06/02/18 23:06/02/18 23:01 - Laboratory Laboratory results interpreted by me: 06/02/18 06/02/18 16:00 16:00 RBC 3.92 L Hgb 12.4 L Hct 36.5 L RDW 14.5 H Alkaline Phosphatase 134 H Discharge <PATRIANATALIO - Last Filed: 06/02/18 18:53> <BEATRIZ GALAVIZ - Last Filed: 06/03/18 00:45> - Discharge Clinical Impression: Chest pain Qualifiers: Chest pain type: unspecified Qualified Code(s): R07.9 - Chest pain, unspecified Condition: Stable Disposition: HOME, SELF-CARE Additional Instructions: Your workup does not show any concerning findings at this time. Your symptoms appear to be musculoskeletal. Follow-up with the primary care provider referral listed below. We have a case picker consult placed for you. Return if you worsen including increased pain, passing out, difficulty breathing, fever, vomiting, or any other concerning or worsening symptoms. Referrals: [facility] [Provider Group] - Follow up as needed
[2018-06-02 17:16] LABS: ABSOLUTE LYMPHOCYTES (AUTO) 1.8 10^3/uL (0.5-4.7); ABSOLUTE MONOCYTES (AUTO) 0.7 10^3/uL (0.1-1.4); ABSOLUTE NEUT (AUTO) 4.7 10^3/uL (1.7-8.2); BASOPHILS % (AUTO) 0.7 % (0-2); EOSINOPHILS % (AUTO) 0.7 % (0-6); HEMATOCRIT 36.5 % (37.9-51.0); HEMOGLOBIN 12.4 g/dL (13.5-17.0); LYMPHOCYTES % (AUTO) 24.4 % (13-45); MEAN CORPUSCULAR HEMOGLOBIN 31.6 pg (27.0-33.4); MEAN CORPUSCULAR VOLUME 93 fl (80-97); MONOCYTES % (AUTO) 10.1 % (3-13); PLATELET COUNT 272 10^3/uL (150-450); RED BLOOD COUNT 3.92 10^6/uL (4.35-5.55); RED CELL DISTRIBUTION WIDTH 14.5 % (11.5-14.0); SEGMENTED NEUTROPHILS % (AUTO) 64.1 % (42-78); TOTAL CELLS COUNTED % (AUTO) 100 %; WHITE BLOOD COUNT 7.4 10^3/uL (4.0-10.5)
[2018-06-02 17:21] LABS: ALANINE AMINOTRANSFERASE 24 U/L (21-72); ALBUMIN 3.9 g/dL (3.5-5.0); ALKALINE PHOSPHATASE 134 U/L (38-126); ANION GAP 12 (5-19); ASPARTATE AMINO TRANSFERASE 29 U/L (17-59); BILIRUBIN,DIRECT 0.2 mg/dL (0.0-0.4); BILIRUBIN,TOTAL 0.4 mg/dL (0.2-1.3); BLOOD UREA NITROGEN 10 mg/dL (7-20); CARBON DIOXIDE 26 mmol/L (22-30); CHLORIDE 104 mmol/L (98-107); GLUCOSE 81 mg/dL (75-110); POTASSIUM 3.9 mmol/L (3.6-5.0); SODIUM 141.8 mmol/L (137-145); TOTAL PROTEIN 7.3 g/dL (6.3-8.2)
--- NOTE | 2018-06-02 17:40 | RADIOLOGY REPORT (SQ) ---
EXAM DESCRIPTION: CHEST SINGLE VIEW COMPLETED DATE/TIME: 06/02/2018 5:31 pm REASON FOR STUDY: CP COMPARISON: 02/04/2018. NUMBER OF VIEWS: One view. TECHNIQUE: Single frontal radiographic view of the chest acquired. LIMITATIONS: None. FINDINGS: LUNGS AND PLEURA: No opacities, masses or pneumothorax. No pleural effusion. Attenuated bl ood vessels and flattened cassidy-diaphragms. MEDIASTINUM AND HILAR STRUCTURES: No masses. Contour normal. HEART AND VASCULAR STRUCTURES: Heart normal in size. Normal vasculature. BONES: No acute findings. Old rib fractures. HARDWARE: None in the chest. OTHER: No other significant finding. IMPRESSION: COPD. NO ACUTE RADIOGRAPHIC FINDING IN THE CHEST. TECHNICAL DOCUMENTATION: JOB ID: [id number] [employer]- All Rights Reserved Reading location - IP/workstation name: [email or web address]
--- NOTE | 2018-06-02 19:17 | EKG REPORT ---
SEVERITY:- NORMAL ECG - SINUS RHYTHM : Confirmed by: Ken Hernandez 02-Jun-2018 19:16:25
[2018-06-02 23:38] VITALS: BP 137/59
== END 2018-06-02 23:55 | disposition home or self-care (01) ==
LOC: ER 15:56
DX: R07.9 Chest pain, unspecified (principal); R11.0 Nausea; R61 Generalized hyperhidrosis; R06.02 Shortness of breath; F17.200 Nicotine dependence, unspecified, uncomplicated; Z59.0 Homelessness
CPT/HCPCS: 36415; 71045; 80053; 84484; 85025; 93005; 93010; 99285